=== PATIENT | female | born 1945 | race Caucasian/White ===

== ENCOUNTER → 2017-06-18 12:56 | Outpatient (CLI) | payer MEDICARE, MEDICAID ==
[2015-05-04 08:36] VITALS: BMI 21.6
[~2017-06-18 12:56] MED LIST: NORCO 7.5/325 T1 TA1 PO; NORVASC10 MG PO; PLAVIX75 MG PO; PROTONIX40 MG PO; SEROQUEL200 MG PO; XANAX0.25 MG PO; ZETIA10 MG PO
== END | disposition home or self-care (01) ==
LOC: D.RAD 12:56
DX: C34.32 Malignant neoplasm of lower lobe, left bronchus or lung (principal)